=== PATIENT | female | born 1985 | race Caucasian/White ===

== ENCOUNTER 2024-09-17 16:56 | Emergency (ER) | payer BC, SELFPAY ==
[2024-09-17 17:05] VITALS: BP 142/95
[2024-09-17 17:20] LABS: % Basophils 0.3 % (0-2); % Eosinophils 1.5 % (0-6); % Immature Granulocytes 0.6 % (0-0.5); % Lymphocytes 32.7 % (20.5-51.1); % Monocytes 5.8 % (1.7-9.3); % Neutrophils 59.1 % (42.2-75.2); Absolute Eosinophils 0.1 10^3/uL (0-0.7); Absolute Immature Granulocytes 0.1 10^3/uL (0-0.05); Absolute Lymphocytes 2.9 10^3/uL (1.2-3.4); Absolute Monocytes 0.5 10^3/uL (0.1-0.6); Absolute Neutrophils 5.2 10^3/uL (1.4-6.5); Hematocrit 38.4 % (37.0-47.0); Mean Corp Hgb Conc. 33.9 g/dL (33.0-37.0); Mean Corpuscular Hgb 28.9 pg (27.0-31.0); Mean Corpuscular Volume 85.3 fL (81.0-99.0); Mean Platelet Volume 9.8 fL (7.4-10.4); Nucleated Red Blood Cells % 0 %; Platelet Count 301 10^3/uL (130-400); Red Cell Dist. Width 12.6 % (11.5-14.5); White Blood Cell Count 8.8 10^3/uL (4.8-10.8)
[2024-09-17 17:33] LABS: HCG, Serum Qualitative Screen Negative
[2024-09-17 17:36] LABS: ALT (SGPT) 24 U/L (0-35); AST (SGOT) 25 U/L (14-36); Albumin 4.3 g/dl (3.5-5.0); Alkaline Phosphatase 73 U/L (38-126); Blood Urea Nitrogen 14 mg/dl (7-17); Calcium 9.3 mg/dl (8.4-10.2); Carbon Dioxide 25 mmol/L (22-30); Chloride 107 mmol/L (98-107); Glucose 92 mg/dl (70-99); Potassium 4.3 mmol/L (3.5-5.1); Sodium 144 mmol/L (135-145); Total Protein 7.2 g/dl (6.3-8.2); eGFR > 60.00
[2024-09-17] MEDS: TORADOL 15 MG IV (18:42)
[2024-09-17 18:45] VITALS: BP 145/81
[2024-09-17 18:57] LABS: Urine Albumin Negative (Neg - Trace); Urine Bilirubin Negative (Negative); Urine Character Clear (Clear); Urine Color Yellow; Urine Glucose Negative (Negative); Urine Ketone Negative (Negative); Urine Leukocyte 2+ (Negative); Urine Nitrite Negative (Negative); Urine Occult Blood 1+ (Negative); Urine Urobilinogen 1+ (Neg - 1+); Urine pH 6.5 (5.0-9.0)
[2024-09-17 19:00] VITALS: BP 143/72
[2024-09-17 19:11] LABS: Urine Bacteria Few (Negative); Urine Red Blood Cell 0-2 /HPF (0-2); Urine Squamous Cell >30 /LPF (Few)
--- NOTE | 2024-09-17 19:14 | ED.GENMED ---
History of Present Illness
General
Chief Complaint: Abdominal Pain
Time Seen by Provider: 09/17/24 18:06
History of Present Illness
History of Present Illness:
39-year-old female without significant past medical history presenting to the emergency department for acute onset of lower abdominal pain. Patient reports prior to arrival she had severe acute lower abdominal pain. Preceding this, was feeling
fine. Denies ever having this pain in the past. Pain is primarily in the right lower quadrant area of the abdomen. Denies any vomiting or diarrhea. Denies chest pain or difficulty breathing. Denies any history of abdominal surgeries. Denies
any urinary complaints or complaints. Pain has somewhat improved since onset. Denies additional acute medical complaints
Phy Exam
Physical Exam
Physical Exam:
General: Well-appearing, no clinical signs of dehydration, nontoxic and in no acute distress
HEENT: protecting airway
Neck: appears supple
CV: Normal heart rate, regular rhythm
Resp: No accessory muscle use, no increased work of breathing, lungs clear to auscultation bilaterally
Abd: Soft and non-distended, focal right lower quadrant tenderness with positive McBurney sign tenderness
Extremities: No deformities, no swelling
Neuro: alert, no focal neurologic deficit
: deferred
Rectal: deferred
Psych: Normal affect
Skin: Intact
Course
Orders/Labs/Results
Orders:
Orders
09/17/24 17:05
Test Result ONCE
09/17/24 17:13
Complete Blood Count/With Diff Urgent
Comprehensive Metabolic Panel Urgent
HCG, Serum Qualitative Screen Urgent
09/17/24 18:34
CT Abd/pelvis W Iv Cont Urgent
Comment:
Reason For Exam: RLQ pain, r/o appe
Ketorolac [Toradol] 15 mg IV NOW STA
09/17/24 18:42
Urinalysis Reflex To Culture Urgent
Date Specimen was Collected: 09/17/24
Time Specimen was Collected: 17:05
Urine Microscopic Reflex Cult Urgent
Urine Culture Urgent
MAXINE Source: U
Specimen Description:
Date Specimen was Collected: 09/17/24
Time Specimen was Collected: 17:05
09/17/24 20:10
Tamsulosin [Flomax] 0.4 mg PO NOW STA
Abnormal Lab Results
09/17/24 09/17/24
17:13 18:42
Abs Immat Gran (auto) 0.1 H 10^3/uL
(0-0.05)
Immature Gran % 0.6 H %
(0-0.5)
Ur Occult Blood Reflex 1+ A
(Negative)
Leukocyte Esterase Rfl 2+ A
(Negative)
Urine Bacteria (Reflex) Few A
(Negative)
09/17/24 17:13
09/17/24 17:13
Vital Signs
Initial and Last Documented VS:
Initial Vital Signs
Temp Pulse Resp BP Pulse Ox
98.6 F 86 18 142/95 98
09/17/24 17:05 09/17/24 17:05 09/17/24 17:05 09/17/24 17:05 09/17/24 17:05
Last Documented Vital Signs
Temp Pulse Resp BP Pulse Ox
98.6 F 86 18 143/72 95
09/17/24 17:05 09/17/24 17:05 09/17/24 17:05 09/17/24 19:00 09/17/24 19:15
MDM/Problems Addressed
MDM/Problems Addressed:
39-year-old female presenting for acute onset of lower abdominal pain. Vital signs on arrival are normal.
On exam patient is resting comfortably, no acute distress or discomfort. However, she does have focal right lower quadrant tenderness, McBurney's point tenderness. Ultimate concern for acute appendicitis. Toradol ministered for pain. Laboratory
analysis without leukocytosis. Plan for CT imaging.
21:00 -patient's labs are unremarkable. CT without acute pathology to explain patient's symptoms. There is a left ovarian cyst, however pain is right sided. Without any concern for ovarian torsion. On reassessment, patient remains stable, notes
that her pain has improved. Feel stable for discharge, possible gas pain versus some constipation. Strict return precautions were communicated to patient and patient verbalized understanding
*Critical Care Note
Total Time (30-74mins, 75-104mins- exclusive of procedures): Not Applicable
ED Attending Note
-
Portions of this chart may have been created with voice recognition software.� Occasional wrong word or��sound alike� substitutions may have occurred due to the inherent limitations of voice recognition software.
Discharge Plan
Departure
Referrals:
Kay Jj CRNP [Family Provider] -
Interventions
Interventions:
*Risk Screen - Suicide Last Done: 09/17/24 17:05
*General Assessment Last Done: 09/17/24 17:05
*Neglect/Abuse Screening Last Done: 09/17/24 17:05
*ED- Fall Risk Assessment Last Done: 09/17/24 17:05
*ED COVID-19 Vaccine History Last Done: 09/17/24 17:05
HP-Mdznus-Flggitysax Assessment Last Done: 09/17/24 18:43
Discharge Date and Time
Print Language: CZECH
== END 2024-09-17 21:30 | disposition home or self-care (01) ==
LOC: EMR 16:56
PROVIDERS: EMERGENCY PHYSICIAN Student in an Organized Health Care Education/Training Program; FAMILY PHYSICIAN Nurse Practitioner
DX: N83.202 Unspecified ovarian cyst, left side (principal)
CPT/HCPCS: 99284; 96374; 74177; 80053; 81003; 81015; 84703; 85025; 87086; Q9967